=== PATIENT | female | born 1985 | race Hispanic/Latino ===

== ENCOUNTER 2018-03-03 05:54 | Emergency (ER) | payer BC ==
[~2018-03-03] VITALS: Ht 160 cm; Wt 49.9 kg
[2018-03-03 06:22] LABS: BASOPHILS % 0.6 % (0.0-1.0); EOSINOPHILS # (AUTO) 0.1 (0.0-0.4); EOSINOPHILS % 1.1 % (0.0-6.0); HEMOGLOBIN 12.5 g/dL (12.0-16.0); LYMPHOCYTES # (AUTO) 1.3 (1.0-3.2); LYMPHOCYTES % 19.9 % (18.0-39.1); MEAN CORPUSCULAR HEMOGLOBIN 32.3 pg (28-32); MEAN CORPUSCULAR HGB CONC 33.8 g/dL (31-35); MEAN CORPUSCULAR VOLUME 95.6 fL (81-99); MONOCYTES # (AUTO) 0.4 (0.2-0.8); MONOCYTES % 6.7 % (4.4-11.3); NEUTROPHILS # (AUTO) 4.5 (2.1-6.9); NEUTROPHILS % 71.1 % (38.7-80.0); PLATELET COUNT 203 x10e3/uL (140-360); RED BLOOD COUNT 3.87 x10e6/uL (3.6-5.1); RED CELL DISTRIBUTION WIDTH 13.2 % (11.7-14.4)
[2018-03-03 06:33] LABS: INR 1.13; PROTHROMBIN TIME 13.6 seconds (11.9-14.5)
[2018-03-03 06:34] LABS: PARTIAL THROMBOPLASTIN TIME 28.8 seconds (23.8-35.5)
[2018-03-03 06:40] LABS: ALANINE AMINOTRANSFERASE 10 IU/L (0-55); ALBUMIN 4.4 g/dL (3.5-5.0); ALBUMIN/GLOBULIN RATIO 1.8 (0.8-2.0); ALKALINE PHOSPHATASE 59 IU/L (40-150); ANION GAP 13.3 mmol/L (8-16); BLOOD UREA NITROGEN 14 mg/dL (7-26); BUN/CREATININE RATIO 17 (6-25); CALCIUM 9.5 mg/dL (8.4-10.2); CARBON DIOXIDE 23 mmol/L (22-29); CHLORIDE 110 mmol/L (98-107); CREATININE, SERUM 0.84 mg/dL (0.57-1.11); EST GLOMERULAR FILTRATION RATE > 60 ML/MIN (60-); GLUCOSE 114 mg/dL (74-118); POTASSIUM 3.3 mmol/L (3.5-5.1); SODIUM 143 mmol/L (136-145)
[2018-03-03] MEDS ORDERED: NO MEDS (06:46)
[2018-03-03] MEDS ORDERED: SODIUM CHLORIDE 0.9% 50ML 50 ML ONE (07:11)
[2018-03-03] MEDS ORDERED: IOPAMIDOL 370 MG/ML 200 ML INFUS..BTL INJ ONE (07:12)
--- NOTE | 2018-03-03 07:13 | Diagnostic Imaging Report ---
PROCEDURE:CT PELVIS WITH CONTRAST COMPARISON:None. INDICATIONS:VAGINAL BLEED AFTER INTERCOURSE TECHNIQUE:After obtaining the patient's consent, CT images were obtained with non-ionic intravenous contrast material. CONTRAST:100 cc Isovue 370 FINDINGS: PELVIC NODES:No inguinal or pelvic sidewall lymphadenopathy.. PELVIC ORGANS:The urinary bladder is collapsed and poorly evaluated. The uterus is anteflexed and appears normal. No adnexal mass. A balloon retention catheter lies in the upper vagina with a heterogeneous high attenuation material alongside within the vaginal canal presumably representing hematoma. BONES:No osseous destructive lesions. No focal soft tissue abnormalities. OTHER:Visualized small and large bowel show no distention or wall thickening. The appendix is normal. Iliac arterial systems are well-visualized and patent. No free fluid. No ascites. No pneumoperitoneum.. CONCLUSION: Distention of the vaginal canal with heterogeneous material presumably representing blood products in the setting of vaginal bleeding after intercourse. No free air or free pelvic fluid. A balloon retention catheter tip lies in the region of the right-sided vaginal fornix. Dictated by: David Whittaker M.D. on 03/03/2018 at 7:16 Electronically approved by: David Whittaker M.D. on 03/03/2018 at 7:16
[2018-03-03] MEDS ORDERED: SODIUM CHLORIDE 0.9% 1000ML 2,000 ML ONE (07:25)
[2018-03-03 07:29] VITALS: BP 117/70
[2018-03-03] MEDS ORDERED: SODIUM CHLORIDE 0.9% 1000ML 1,000 ML IV ONE ×2 (07:30)
[2018-03-03 07:36] LABS: HEMATOCRIT 30.8 % (34.2-44.1); HEMOGLOBIN 10.5 g/dL (12.0-16.0)
== END 2018-03-03 07:52 | disposition other institution (70) ==
LOC: ER 05:54
DX: R10.2 Pelvic and perineal pain (principal); N93.0 Postcoital and contact bleeding; N93.9 Abnormal uterine and vaginal bleeding, unspecified
CPT/HCPCS: 36415; 72193; 80053; 84702; 85014; 85018; 85025; 85610; 85730; 99284; J7030; Q9967